=== PATIENT | male | born 1940 | race Caucasian/White ===

== ENCOUNTER → 2017-11-03 | Outpatient (REF) | payer MEDICARE, BC ==
[~2017-11-03] MED LIST: ATOR20TA65 PO; CELE-1 PO; CETI-169 PO; CYC10 PO; ESOM40CA42 PO; HYDR12.561 PO; LOSA100T67 PO; MEP50 PO; METO100T20 PO; METXL50 PO; MONT10TA PO; MONT10TA4 PO; TAMS0.4C70 PO; TEST100V6 IM; TRIA10.8
== END ==
LOC: ZZSENDIN 19:40 → EDSTATUS 19:43 → ZZSENDIN 19:45 → EDSTATUS 19:45
PROVIDERS: ATTEND Nurse Practitioner Gerontology
DX: R19.7 Diarrhea, unspecified (principal); R11.2 Nausea with vomiting, unspecified

== ENCOUNTER → 2017-11-04 | Outpatient (REF) | payer MEDICARE, BC | LOC: ZZSENDIN 09:41 | PROVIDERS: ATTEND Nurse Practitioner Gerontology | DX: R19.7 Diarrhea, unspecified (principal); R11.2 Nausea with vomiting, unspecified ==